=== PATIENT | female | born 1960 | race Caucasian/White ===

== ENCOUNTER 2021-05-22 22:32 | Emergency (ER) | payer MEDICARE ==
[2021-05-22] MEDS ORDERED: CITROMA 296 ML PO ONE (22:48)
[2021-05-22] MEDS ORDERED: CITROMA 296 ML ONE (22:57)
--- NOTE | 2021-05-22 23:06 | ERPHSYRPT ---
- History of Present Illness Time Seen by Provider: 05/22/21 23:04 Historian: patient Exam Limitations: no limitations Patient Subjective Stated Complaint: " I am constipated haven't gone in 2 days. I usually go everyday." Triage Nursing Assessment: Pt c/o constipation for 2 days, pt denies abdominal pain, nausea, vomiting, or fevers at home, pt states "I think there is something stuck in there and it hurts." pt has hx of DB type 2, copd, a fib, pt's fsbs with ambulance was 440, pt took insulin yesterday, has G tube placed Physician History: Pt c/o constipation for 2 days, pt denies abdominal pain, nausea, vomiting, or fevers at home, pt states "I think there is something stuck in there and it hurts." pt has hx of DB type 2, copd, a fib, pt's fsbs with ambulance was 440, pt took insulin yesterday, has G tube placed Timing/Duration: yesterday Activities at Onset: none Severity of Pain-Max: none Severity of Pain-Current: none Modifying Factors: Improves With: nothing Associated Symptoms: other (constipation) Previous symptoms: no prior history Allergies/Adverse Reactions: cephalexin [From Keflex] Allergy (Mild, Verified 05/22/21 22:53) Home Medications: Metoclopramide HCl 5 mg [Reglan 5 MG] 5 mg PO DAILY 05/22/21 [History] Paroxetine HCl 20 mg [Paxil 20 MG] 20 mg PO DAILY 05/22/21 [History] Pilocarpine HCl 5 mg PO DAILY 05/22/21 [History] Hx Tetanus, Diphtheria Vaccination/Date Given: Yes Hx Influenza Vaccination/Date Given: No Hx Pneumococcal Vaccination/Date Given: No Immunizations Up to Date: Yes Travel Risk - International Travel Have you traveled outside of the country in past 3 weeks: No - Coronavirus Screening Are you exhibiting any of the following symptoms?: No Close contact with a COVID-19 positive Pt in past 14-21 Days: No - Vaccine Status Have you recieved a Covid-19 vaccination: No - Review of Systems Constitutional: No Fever, No Chills Eyes: No Symptoms Ears, Nose, & Throat: No Symptoms Respiratory: No Cough, No Dyspnea Cardiac: No Chest Pain, No Edema, No Syncope Abdominal/Gastrointestinal: Constipation, No Abdominal Pain, No Nausea, No Vomiting, No Diarrhea Genitourinary Symptoms: No Dysuria Musculoskeletal: No Back Pain, No Neck Pain Skin: No Rash Neurological: No Dizziness, No Focal Weakness, No Sensory Changes Psychological: No Symptoms Endocrine: No Symptoms All Other Systems: Reviewed and Negative - Past Medical History Pertinent Past Medical History: Yes Cardiac History: Arrhythmia Respiratory History: COPD Endocrine Medical History: Diabetes Type II - Past Surgical History Past Surgical History: Yes Gastrointestinal: Cholecystectomy - Social History Smoking Status: Former smoker Exposure to second hand smoke: No Drug Use: none Patient Lives Alone: No - Nursing Vital Signs Nursing Vital Signs: Initial Vital Signs Temperature 97.5 F 05/22/21 22:40 Pulse Rate 94 H 05/22/21 22:40 Respiratory Rate 18 05/22/21 22:40 Blood Pressure 123/98 05/22/21 22:40 O2 Sat by Pulse Oximetry 100 05/22/21 22:40 Pain Scale Pain Intensity 9 - Physical Exam General Appearance: no apparent distress, alert Eye Exam: PERRL/EOMI, eyes nml inspection Ears, Nose, Throat Exam: normal ENT inspection, pharynx normal, moist mucous membranes Neck Exam: normal inspection, non-tender, supple, full range of motion Respiratory Exam: normal breath sounds, lungs clear, No respiratory distress Cardiovascular Exam: regular rate/rhythm, normal heart sounds Gastrointestinal/Abdomen Exam: soft, No tenderness, No mass Back Exam: normal inspection, normal range of motion, No CVA tenderness, No vertebral tenderness Extremity Exam: normal inspection, normal range of motion, pelvis stable Neurologic Exam: alert, oriented x 3, cooperative, normal mood/affect, nml cerebellar function, sensation nml, No motor deficits Skin Exam: normal color, warm, dry SpO2: 100 - Course Nursing assessment & vital signs reviewed: Yes - Radiology Exams Abdomen X-ray Interpretation: Reviewed by me (sigmoid colon constipation) Ordered Tests: Active Orders 24 hr Category Date Time Status Enema STAT Care 05/22/21 23:29 Ordered OBSTR/ACUTE ABDOMEN SERIES Stat Exams 05/22/21 22:48 Ordered Medication Summary Discontinued Medications Generic Name Dose Route Start Last Admin Trade Name Freq PRN Reason Stop Dose Admin Magnesium Citrate 150 ml 05/22/21 22:48 05/22/21 23:22 Magnesium Citrate 296 Ml Solution PO 05/22/21 22:49 150 ml 1XONLY ONE Administration Magnesium Citrate Confirm 05/22/21 22:57 Magnesium Citrate 296 Ml Solution Administered 05/22/21 22:58 Dose 296 ml .ROUTE .STK-MED ONE - Progress Progress: improved Counseled pt/family regarding: diagnosis, need for follow-up, rad results - Departure Departure Disposition: Home Clinical Impression: Constipation by delayed colonic transit Condition: Stable Critical Care Time: No Referrals: ASHLEY SONI MD [ACTIVE STAFF] - Follow up/PCP as directed Instructions: Constipation, Adult (DC) Additional Instructions: Discharge/Care Plan RADHAMES RIVERA was seen on 05/22/21 in the Emergency Room. The patient was counseled regarding Diagnosis,Lab results, Imaging studies, need for follow up and when to return to the Emergency Room. Prescriptions given: Discharge Note I have spoken with the patient and/or caregivers. I have explained the patient's condition, diagnosis and treatment plan based on the information available to me at this time. I have answered the patient's and/or caregiver's questions and addressed any concerns. The patient and/or caregivers have as good understanding of the patient's diagnosis, condition and treatment plan as can be expected at this point. The vital signs have been stable. The patient's condition is stable and appropriate for discharge from the emergency department. The patient will pursue further outpatient evaluation with the primary care physician or other designated or consulting physician as outlined in the discharge instructions. The patient and/or caregivers are agreeable to this plan of care and follow-up instructions have been explained in detail. The patient and/or caregivers have received these instruction. The patient/and or caregivers are aware that any significant change in condition or worsening of symptoms should prompt an immediate return to this or the closest emergency department or call 911. RADHAMES RIVERA was seen on 05/22/21 n the Emergency Room. At that time you were treated for an emergent condition, during your visit Laboratory, Radiology and/or other procedures may have been ordered. It is very important that you follow-up with your Primary Care Physician within the next 24-48 hours to review your Emergency Room visit and the final results of testing that was ordered. Some test results such as Urine Cultures, Blood Cultures, and other cultures if ordered will not be finalized for 24-48 hours. If you do not have a Primary Care Provider please call the medical records department at [phone] ext [phone] to obtain a copy of your results or you may sign into our patient portal to obtain these results by visiting us @ [email or web address] and completing the following steps: 1. Click on the Patient Portal link 2. Click the Patient Self Enrollment Link to complete the enrollment form and entering your 3. Once the enrollment form is completed you will receive an email with a temporary ID and password at the email address you provided. 4. Next choose a user name and password. Your user name must be at least 4 characters long and your password must be at least 4 characters long. 5. Choose a security question from the list and provide your answer to the question. If you already have signed into the Health Portal you may access your Health Care Information 15/09 by the following steps: 1. Login to our website @ [email or web address] 2. Enter your original user name and password. FAQS The [facility] Health Portal is an online tool that contains your Lab Results, Radiology Reports, Visit History, Discharge Instructions and Health Summary Lab and Radiology Results will not be available for 72 hours on the portal. The Portal is a secure site, passwords are encryted and URLs are re-written so they cannot be copied and pasted. You and authorized family members are the only ones who can access your Portal. Also there is a timeout feature that protects your information if you leave the Portal page open. If you have technical difficulty please use the Contact Us link on the page this will allow you to submit any questions you have regarding the Portal or you may contact the Medical Record Department at [phone] ext [phone]. Prescriptions: Docusate Sodium 50 mg/5 ml [COLACE Liquid 50 MG/5 ML] 50 mg PO BID #100 ml
[2021-05-23 01:44] VITALS: BP 140/76; PULSE 90; O2SAT 99
--- NOTE | 2021-05-23 08:44 | XRAY ---
Indication: Constipation. Rectal pain. Comparison: None 2 view abdomen demonstrates moderate diffuse scattered colonic fecal debris. Minimal nonspecific left upper quadrant air-fluid leveling. No focal bowel dilatation/obstruction. Incidental PEG tube and cholecystectomy clips. Diffuse scattered vascular calcifications. Osseous structures intact with mild osteopenia and degenerative changes. Single AP chest hyperinflated with minimal left midlung peripheral fibrosis/scarring. Heart not enlarged with right Port-A-Cath. Bony thorax intact with mild osteopenia and degenerative changes. Impression: Diffuse fecal stasis. Nonacute 1V chest with chronic features.
== END 2021-05-23 01:30 | disposition home or self-care (01) ==
LOC: ED 22:32
DX: K59.01 Slow transit constipation (principal); E11.9 Type 2 diabetes mellitus without complications; J44.9 Chronic obstructive pulmonary disease, unspecified; Z93.1 Gastrostomy status; Z79.899 Other long term (current) drug therapy
CPT/HCPCS: 74022; 99284; A9270-GY